=== PATIENT | male | born 1970 | race Caucasian/White ===

== ENCOUNTER 2016-10-05 13:35 | Emergency (ER) | payer OTHER ==
[~2016-10-05] VITALS: Ht 175.3 cm; Wt 86.0 kg
[~2016-10-05 13:35] MED LIST: BUPR300T48 PO
[2016-10-05 13:37] VITALS: Ht 175.3 cm; Wt 86.0 kg
[2016-10-05] MEDS ORDERED: OLANZAPINE (ODT) 5 MG TAB ODT STA (14:06)
--- NOTE | 2016-10-05 14:09 | ERD ---
ER Documentation Chief Complaint Date/Time DATE: 10/05/16 TIME: 14:09 Chief Complaint MEDICATION REFIL UNABLE TO GIVE NAMES HPI 45-year-old male with a history of depression and schizophrenia per his records presenting for medication refill for his depression. He denies any hallucinations or suicidal or homicidal ideations. He ran out of his pills 2 days ago. He does not know what pills he is on. He notes he takes 2 pills. He has no other complaints today. He is unable to tell me who his psychiatrist is. Patient is somewhat unorganized with his speech. He does not answer all questions appropriately, as he seems to be having auditory hallucinations. ROS All systems reviewed and are negative except as per history of present illness. Medications Home Meds Reported Medications Bupropion Hcl* (Wellbutrin XL*) 300 Mg Tab.sr.24h, 300 MG PO DAILY 09/07/11 Allergies Allergies: Coded Allergies: Haloperidol Lactate (Verified Allergy, Unknown, hallucination, 09/03/15) haloperidol (Verified Allergy, Unknown, hallucination, 09/03/15) PMhx/Soc History of Surgery: No Anesthesia Reaction: No Hx Neurological Disorder: No Hx Respiratory Disorders: No Hx Cardiac Disorders: No Hx Psychiatric Problems: Yes (SCHITZOPHRENIA) Hx Miscellaneous Medical Probl: No Hx Alcohol Use: Yes Hx Substance Use: No Hx Tobacco Use: Yes FmHx Family History: No diabetes Physical Exam Vitals Vital Signs Date Time Temp Pulse Resp B/P Pulse Ox O2 Delivery O2 Flow Rate FiO2 10/05/16 13:37 97.9 124 20 141/92 98 Physical Exam INITIAL VITAL SIGNS: Reviewed by me GENERAL: Well appearing, non toxic, speaking in full sentences. Smiles on exam HEENT: Atraumatic, Moist mucous membranes NECK: Supple. RESPIRATORY: No respiratory distress. EXTREMITIES: No clubbing or cyanosis. No edema SKIN: Warm, dry. NEUROLOGIC: A&Ox4. No facial asymmetry. Normal speech Psych: Appearance: Close old but clean M/S: Alert and oriented Mood/Affect: Normal Speech: Somewhat disorganized, but answers some questions appropriately. Insight: Impaired Hallucinations: Denies hallucinations but seems to be having auditory hallucinations SI or HI: None. Results 24 hrs Current Medications Medications (Trade) Dose Ordered Sig/Colette Route PRN Reason Start Time Stop Time Status Last Admin Dose Admin Olanzapine (Zyprexa Zydis) 10 mg ONCE STAT ODT 10/05/16 14:06 10/05/16 14:07 DC 10/05/16 14:39 Procedures/MDM Patient is presenting for medication refill, however I do not know what medications he is on, so I cannot give him a prescription for any medications which I discussed with the patient. I gave him 1 dose of Zyprexa here orally. I provided him a list of [facility] centers where he can follow-up for prescription refill. Patient understands. We reviewed the list together. He plans on going to a center in [place]. Patient seems to have active psychiatric issues, however I do not think he meets criteria for 5[address] hold. He does not seem to be a danger to himself or others. He does not seem to be gravely disabled. Patient was discharged in stable condition Departure Diagnosis: Primary Impression: Encounter for medication refill Additional Impressions: History of depression History of schizophrenia Condition: Stable Patient Instructions: Depression Referrals: [facility] YOU HAVE RECEIVED A MEDICAL SCREENING EXAM AND THE RESULTS INDICATE THAT YOU DO NOT HAVE A CONDITION THAT REQUIRES URGENT TREATMENT IN THE EMERGENCY DEPARTMENT. FURTHER EVALUATION AND TREATMENT OF YOUR CONDITION CAN WAIT UNTIL YOU ARE SEEN IN YOUR DOCTORS OFFICE WITHIN THE NEXT 1-2 DAYS. IT IS YOUR RESPONSIBILITY TO MAKE AN APPOINTMENT FOR FOLOW-UP CARE. IF YOU HAVE A PRIMARY DOCTOR --you should call your primary doctor and schedule and appointment IF YOU DO NOT HAVE A PRIMARY DOCTOR YOU CAN CALL OUR PHYSICIAN REFERRAL HOTLINE AT . IF YOU CAN NOT AFFORD TO SEE A PHYSICIAN YOU CAN CHOSE FROM THE FOLLOWING [facility] INSTITUTIONS: [facility] [address] [place] [address] [facility] [address] [place] [address] [facility] [address] [place] [address] Additional Instructions: Follow-up with mental health to get any prescriptions for your depression. I cannot give you prescriptions today as you do not know what your prescription name is. YUMIKO YEUNG MD Oct 05, 2016 14:09
== END 2016-10-05 14:48 | disposition home or self-care (01) ==
LOC: E/R 13:35
DX: Z76.0 Encounter for issue of repeat prescription (principal); F32.9 Major depressive disorder, single episode, unspecified; F20.9 Schizophrenia, unspecified; Z87.891 Personal history of nicotine dependence
CPT/HCPCS: Z7502; Z7610; 99283

== ENCOUNTER 2016-10-18 18:37 | Emergency (ER) | payer SELFPAY | END 2016-10-18 19:05 | disposition left against medical advice (07) | LOC: E/R 18:37 | DX: Z53.21 Procedure and treatment not carried out due to patient leaving prior to being seen by health care provider (principal) ==

== ENCOUNTER 2018-01-12 17:49 | Emergency (ER) | END 2018-01-12 20:16 | disposition left against medical advice (07) ==